=== PATIENT | male | born 1970 | race Caucasian/White ===

== ENCOUNTER 2016-12-05 10:40 | Emergency (ER) | payer OTHER ==
[2016-12-05 10:47] VITALS: RESP 16
--- NOTE | 2016-12-05 11:00 | CPEKG ---
Heart Rate: 47 RR Interval: 1277 P-R Interval: 168 QRSD Interval: 106 QT Interval: 452 QTC Interval: 400 P [place]: 11 QRS [place]: 117 T Wave [place]: 26 EKG Severity - OTHERWISE NORMAL ECG - EKG Impression: SINUS BRADYCARDIA EKG Impression: LOW VOLTAGE IN FRONTAL LEADS Electronically Signed By: Emil Sanchez 11-Dec-2016 12:48:56
[2016-12-05] MEDS ORDERED: NS 1,000 ML IV ONE (11:04)
--- NOTE | 2016-12-05 11:04 | EDPHY ---
H & P Stated Complaint: Strange CP intermittent for 10 days Xray Time Seen by Provider: 12/05/16 10:59 HPI/ROS: CHIEF COMPLAINT: Intermittent right-sided chest pain HISTORY OF PRESENT ILLNESS: The patient has a 10 day history of intermittent right-sided chest pain. The patient states that he is currently asymptomatic. The pain is typically worsened with movement. The patient denies any associated numbness or weakness. He has no associated abdominal pain. The patient denies nausea, vomiting or diarrhea. The patient has no risk factors for cardiac disease. The patient reports he is quite athletic and has had no history of exertional dyspnea. The patient denies asymmetric calf pain or swelling. The patient contacted his primary care provider who recommended he be evaluated in the emergency department. The patient denies additional acute complaints. REVIEW OF SYSTEMS: A comprehensive 10 point review of systems is otherwise negative aside from elements mentioned in the history of present illness. Source: Patient - Personal History Current Tetanus/Diphtheria Vaccine: Unsure Current Tetanus Diphtheria and Acellular Pertussis (TDAP): Unsure - Medical/Surgical History Hx Asthma: No Hx Chronic Respiratory Disease: No Hx Diabetes: No Hx Cardiac Disease: No Hx Renal Disease: No Hx Cirrhosis: No Hx Alcoholism: No Hx HIV/AIDS: No Hx Splenectomy or Spleen Trauma: No Other PMH: Gout - Social History Smoking Status: Never smoked - Physical Exam Exam: General Appearance: Alert, no distress Eyes: Pupils equal and round no pallor or injection ENT, Mouth: Mucous membranes moist Respiratory: There are no retractions, lungs are clear to auscultation Cardiovascular: Regular rate and rhythm Gastrointestinal: Abdomen is soft and nontender, no masses, bowel sounds normal Neurological: A&O, normal motor function, normal sensory exam, normal cranial nerves Skin: Warm and dry, no rashes Musculoskeletal: Neck is supple nontender Extremities: symmetrical, full range of motion Constitutional: Initial Vital Signs Temperature (C) 36.5 C 12/05/16 10:44 Heart Rate 62 12/05/16 10:44 Respiratory Rate 16 12/05/16 10:44 Blood Pressure 141/98 H 12/05/16 10:44 O2 Sat (%) 99 12/05/16 10:44 O2 Delivery Mode Room Air Allergies/Adverse Reactions: No Known Allergies Allergy (Verified 05/19/15 16:26) Home Medications: Medication Instructions Recorded Amoxicillin Trihydrate 500 mg PO Q8 7 Days 05/19/15 [Amoxicillin 500mg cap] Antipyrine/Benzocaine/Glycerin 3 drops EACHEAR Q1-2HR #1 btl 05/19/15 [Auralgan Ear Drops] oxyCODONE/APAP 5/325 [Percocet 1 tab PO Q6 #10 tab 05/19/15 5/325] Medical Decision Making - Diagnostics EKG Interpretation: EKG: Complete interpretation has been separately recorded in the [employer] 2000 archive. Summary impression: Sinus bradycardia, no acute ischemic changes noted ED Course/Re-evaluation: The patient presents to the ED with a one-week history of intermittent atypical right-sided chest pain. The patient has no evidence of an obvious pneumothorax some my interpretation of his x-ray. His EKG demonstrates no evidence of ischemia. His troponin and laboratory studies are within normal limits. At this point time I do feel the patient can manage his symptoms conservatively with ibuprofen as needed. He should return to the ED for any protracted chest pain, shortness of breath or other concerns. He should follow up with his primary care provider for any unimproved symptoms. There is no evidence of obvious zoster or other significant explanation for his chest pain in the ED today. Differential Diagnosis: Differential diagnosis considered includes musculoskeletal chest pain, pericarditis, pneumothorax, myocardial infarction - Data Points Laboratory Results: Laboratory Results 12/05/16 11:00 12/05/16 11:00 12/05/16 12/05/16 11:00 11:00 WBC 7.59 10^3/uL 10^3/uL (3.80-9.50) RBC 5.31 10^6/uL 10^6/uL (4.40-6.38) Hgb 16.6 g/dL g/dL (13.7-17.5) Hct 47.1 % % (40.0-51.0) MCV 88.7 fL fL (81.5-99.8) MCH 31.3 pg pg (27.9-34.1) MCHC 35.2 g/dL g/dL (32.4-36.7) RDW 11.7 % % (11.5-15.2) Plt Count 268 10^3/uL 10^3/uL (150-400) MPV 10.2 fL fL (8.7-11.7) Neut % (Auto) 61.3 % % (39.3-74.2) Lymph % (Auto) 29.9 % % (15.0-45.0) [place] % (Auto) 6.5 % % (4.5-13.0) Eos % (Auto) 1.2 % % (0.6-7.6) Baso % (Auto) 0.7 % % (0.3-1.7) Nucleat RBC Rel Count 0.0 % % (0.0-0.2) Absolute Neuts (auto) 4.66 10^3/uL 10^3/uL (1.70-6.50) Absolute Lymphs (auto) 2.27 10^3/uL 10^3/uL (1.00-3.00) Absolute Monos (auto) 0.49 10^3/uL 10^3/uL (0.30-0.80) Absolute Eos (auto) 0.09 10^3/uL 10^3/uL (0.03-0.40) Absolute Basos (auto) 0.05 10^3/uL 10^3/uL (0.02-0.10) Absolute Nucleated RBC 0.00 10^3/uL 10^3/uL (0-0.01) Immature Gran % 0.4 % % (0.0-1.1) Immature Gran # 0.03 10^3/uL 10^3/uL (0.00-0.10) Sodium 142 mEq/L mEq/L (134-144) Potassium 4.2 mEq/L mEq/L (3.5-5.2) Chloride 105 mEq/L mEq/L (97-110) Carbon Dioxide 22 mEq/l mEq/l (22-31) Anion Gap 15 mEq/L mEq/L (8-16) BUN 25 mg/dL H mg/dL (7-23) Creatinine 1.1 mg/dL mg/dL (0.7-1.3) Estimated GFR > 60 Glucose 80 mg/dL mg/dL (70-100) Calcium 9.8 mg/dL mg/dL (8.5-10.4) Troponin I < 0.012 ng/mL ng/mL (0-0.034) Medications Given: Discontinued Medications Sodium Chloride (Ns) 1,000 mls @ 0 mls/hr IV ONCE ONE; Wide Open PRN Reason: Protocol Stop: 12/05/16 11:05 Last Admin: 12/05/16 11:09 Dose: 1,000 mls Departure - Departure Disposition: Home, Routine, Self-Care Clinical Impression: Chest wall pain Condition: Good Instructions: Chest Wall Pain (ED) Additional Instructions: 1. Take Ibuprofen or Motrin 600 mg by mouth three times a day. 2. Please return to the ED for markedly worsening symptoms, difficulty breathing or other concerns. Referrals: SHANTAL MYERS [Primary Care Provider] - As per Instructions
[2016-12-05 11:14] LABS: % IMMATURE GRANULYOCYTES 0.4 % (0.0-1.1); ABSOLUTE IMMATURE GRANULOCYTES 0.03 10^3/uL (0.00-0.10); ADD DIFF? NO; ADD MORPH? NO; ADD SCAN? NO; ATYPICAL LYMPHOCYTE FLAG 20 (0-99); FRAGMENT RBC FLAG 0 (0-99); HEMATOCRIT 47.1 % (40.0-51.0); HEMOGLOBIN 16.6 g/dL (13.7-17.5); LEFT SHIFT FLG 0 (0-99); LIPEMIA HEMOLYSIS FLAG 90 (0-99); MEAN CELL HEMOGLOBIN 31.3 pg (27.9-34.1); MEAN CELL HEMOGLOBIN CONCENTR. 35.2 g/dL (32.4-36.7); MEAN CELL VOLUME 88.7 fL (81.5-99.8); MEAN PLATELET VOLUME 10.2 fL (8.7-11.7); PLATELET CLUMPS FLAG 0 (0-99); PLATELET COUNT 268 10^3/uL (150-400); RED BLOOD CELL COUNT 5.31 10^6/uL (4.40-6.38); RED CELL DISTRIBUTION WIDTH 11.7 % (11.5-15.2)
[2016-12-05 11:24] LABS: ANION GAP 15 mEq/L (8-16); CALCIUM 9.8 mg/dL (8.5-10.4); CARBON DIOXIDE 22 mEq/l (22-31); CHLORIDE 105 mEq/L (97-110); CREATININE 1.1 mg/dL (0.7-1.3); GLOMERULAR FILTRATION RATE > 60; GLUCOSE 80 mg/dL (70-100); POTASSIUM 4.2 mEq/L (3.5-5.2); SODIUM 142 mEq/L (134-144)
[2016-12-05 11:35] LABS: TROPONIN I < 0.012 ng/mL (0-0.034)
[2016-12-05 11:55] VITALS: BP 129/87; PULSE 55; TEMP 98.6; O2SAT 100
== END 2016-12-05 11:56 | disposition home or self-care (01) ==
DX: R07.89 Other chest pain (principal); E86.9 Volume depletion, unspecified